=== PATIENT | male | born 1940 | race Hispanic/Latino ===

== ENCOUNTER → 2023-06-23 | Outpatient (CLI) | payer OTHER, MEDICARE ==
[2023-06-23 16:31] LABS: POTASSIUM 4.1 mmol/L (3.5-5.1)
== END | disposition home or self-care (01) ==
LOC: LAB 11:53
PROVIDERS: ATTEND Internal Medicine Cardiovascular Disease
DX: I11.0 Hypertensive heart disease with heart failure (principal); I42.8 Other cardiomyopathies
CPT/HCPCS: 36415; 80048; 83880